=== PATIENT | female | born 1955 | race Caucasian/White ===

== ENCOUNTER → 2022-11-22 | Outpatient (CLI) | payer BC, SELFPAY ==
[2022-11-22 20:48] LABS: Absolute Lymphocyte Count 4.51 X10^3/uL (0.83-4.51); Absolute Neutrophil Count 5.6 X10^3/uL (2.0-7.7); Basophil# 0.15 X10^3/uL; Basophil% 1.3 % (0-1); Eosinophil# 0.21 X10^3/uL; Eosinophils% 1.9 % (0-5); Hematocrit 42.7 % (37-47); Hemoglobin 13.9 g/dL (12.0-15.0); Lymphocyte # 4.51 X10^3/ul (0.83-4.51); Lymphocyte % 40.2 % (19-41); Mean Corp Hgb Conc 32.6 g/dL (32-36); Mean Corpuscular Hgb 30.8 pg (27.0-32.0); Mean Corpuscular Volume 94.5 fL (81-99); Mean Platelet Vol. 10.3 fl (6.2-12.0); Monocyte# 0.77 X10^3/uL; Monocyte% 6.9 % (0-10); NRBC Flagged by Analyzer 0 % (0-5); Neutrophil # 5.55 X10^3/uL (2.7-7.7); Neutrophil % 49.4 % (47-70); Platelet Count 300 K/mm3 (150-450); RBC Distribution Width CV 13.4 % (11.6-14.6); RBC Distribution Width SD 46.5 fl (35.1-43.9); Red Blood Count 4.52 M/mm3 (4.2-5.4); White Blood Count 11.2 K/mm3 (4.4-11.0)
[2022-11-22 21:10] LABS: AST(SGOT) 18 U/L (15-37); Alanine Aminotransfer ALT/SGPT 29 U/L (13-56); Albumin, Serum 3.4 g/dL (3.2-5.0); Alkaline Phosphatase 115 U/L (45-117); Anion Gap 2 (5-15); BUN 11 mg/dL (7-18); BUN/Creat Ratio 14.8 RATIO (10-20); Calcium,Total 9.1 mg/dL (8.5-10.1); Chloride 108 mmol/L (98-107); Cholesterol 203 mg/dL (200); Creatinine, Serum 0.74 mg/dL (0.55-1.02); EST Glomerular Filtration Rate 83 mL/min (>60); Est Glom Filt Rate - Afr Amer 100 mL/min (>60); Globulin 3.3 g/dL (2.2-4.2); Glucose 86 mg/dL (74-106); High Density Lipoprotein 59 mg/dL; Potassium 3.8 mmol/L (3.5-5.1); Protein, Total 6.7 g/dL (6.4-8.2); Sodium Level 139 mmol/L (136-145); Thyroid Stim Hormone (TSH) 1.61 uIU/mL (0.358-3.74); Triglycerides 158 mg/dL; Very Low Density Lipoprotein 32 mg/dL (5-40)
== END | disposition home or self-care (01) ==
PROVIDERS: Nurse Practitioner
DX: D69.9 Hemorrhagic condition, unspecified (principal); K21.9 Gastro-esophageal reflux disease without esophagitis; I10 Essential (primary) hypertension; E03.9 Hypothyroidism, unspecified
CPT/HCPCS: 80053; 80061; 81241; 84443; 85025

== ENCOUNTER → 2023-05-26 | Outpatient (CLI) | payer MEDICARE, SELFPAY ==
[2023-05-26 23:07] LABS: Absolute Lymphocyte Count 3.67 X10^3/uL (0.83-4.51); Absolute Neutrophil Count 6.3 X10^3/uL (2.0-7.7); Basophil# 0.08 X10^3/uL; Basophil% 0.7 % (0-1); Eosinophil# 0.12 X10^3/uL; Eosinophils% 1.1 % (0-5); Hematocrit 45.6 % (37-47); Hemoglobin 15.2 g/dL (12.0-15.0); Lymphocyte # 3.67 X10^3/ul (0.83-4.51); Lymphocyte % 32.9 % (19-41); Mean Corp Hgb Conc 33.3 g/dL (32-36); Mean Corpuscular Hgb 30.2 pg (27.0-32.0); Mean Corpuscular Volume 90.7 fL (81-99); Mean Platelet Vol. 10.4 fl (6.2-12.0); Monocyte# 0.97 X10^3/uL; Monocyte% 8.7 % (0-10); NRBC Flagged by Analyzer 0 % (0-5); Neutrophil # 6.25 X10^3/uL (2.7-7.7); Neutrophil % 56.1 % (47-70); Platelet Count 332 K/mm3 (150-450); RBC Distribution Width CV 13.7 % (11.6-14.6); RBC Distribution Width SD 45.4 fl (35.1-43.9); Red Blood Count 5.03 M/mm3 (4.2-5.4); White Blood Count 11.2 K/mm3 (4.4-11.0)
[2023-05-27 00:16] LABS: ALB/GLOB Ratio 0.9 RATIO (0.9-2.4); AST(SGOT) 20 U/L (15-37); Alanine Aminotransfer ALT/SGPT 34 U/L (13-56); Albumin, Serum 3.6 g/dL (3.2-5.0); Alkaline Phosphatase 94 U/L (45-117); Anion Gap 6 (5-15); BUN 11 mg/dL (7-18); BUN/Creat Ratio 6.8 RATIO (10-20); CRP > 190.00 mg/L (0.0-3.0); Calcium,Total 9.7 mg/dL (8.5-10.1); Chloride 106 mmol/L (98-107); Creatinine, Serum 1.61 mg/dL (0.55-1.02); EST Glomerular Filtration Rate 34 mL/min (>60); Est Glom Filt Rate - Afr Amer 41 mL/min (>60); Globulin 3.8 g/dL (2.2-4.2); Glucose 95 mg/dL (74-106); Potassium 3.4 mmol/L (3.5-5.1); Protein, Total 7.4 g/dL (6.4-8.2); Sodium Level 136 mmol/L (136-145); Troponin-I HS 8 pg/mL (3.0-54.0)
== END | disposition home or self-care (01) ==
PROVIDERS: PCP Nurse Practitioner; Visit Provider Nurse Practitioner
DX: R19.7 Diarrhea, unspecified (principal); K21.9 Gastro-esophageal reflux disease without esophagitis
CPT/HCPCS: 80053; 84484; 85025; 86140

== ENCOUNTER → 2023-12-11 | Outpatient (CLI) | payer MEDICARE, OTHER, SELFPAY ==
[2023-12-11 21:15] LABS: Absolute Lymphocyte Count 4.68 X10^3/uL (0.83-4.51); Absolute Neutrophil Count 4.2 X10^3/uL (2.0-7.7); Basophil# 0.12 X10^3/uL; Basophil% 1.2 % (0-1); Eosinophil# 0.12 X10^3/uL; Eosinophils% 1.2 % (0-5); Hematocrit 41.6 % (37-47); Lymphocyte # 4.68 X10^3/ul (0.83-4.51); Lymphocyte % 47.7 % (19-41); Mean Corp Hgb Conc 33.7 g/dL (32-36); Mean Corpuscular Hgb 30.3 pg (27.0-32.0); Mean Platelet Vol. 10.1 fl (6.2-12.0); Monocyte% 7.1 % (0-10); NRBC Flagged by Analyzer 0 % (0-5); Neutrophil # 4.15 X10^3/uL (2.7-7.7); Neutrophil % 42.4 % (47-70); Platelet Count 347 K/mm3 (150-450); RBC Distribution Width SD 42.5 fl (35.1-43.9); Red Blood Count 4.62 M/mm3 (4.2-5.4); White Blood Count 9.8 K/mm3 (4.4-11.0)
[2023-12-11 21:32] LABS: AST(SGOT) 23 U/L (15-37); Alanine Aminotransfer ALT/SGPT 31 U/L (13-56); Albumin, Serum 3.6 g/dL (3.2-5.0); Alkaline Phosphatase 115 U/L (45-117); Anion Gap 7 (5-15); BUN 9 mg/dL (7-18); BUN/Creat Ratio 11.7 RATIO (10-20); Calcium,Total 9.2 mg/dL (8.5-10.1); Chloride 106 mmol/L (98-107); Cholesterol 205 mg/dL (200); Creatinine, Serum 0.77 mg/dL (0.55-1.02); EST Glomerular Filtration Rate 80 mL/min (>60); Est Glom Filt Rate - Afr Amer 97 mL/min (>60); Globulin 3.6 g/dL (2.2-4.2); Glucose 85 mg/dL (74-106); High Density Lipoprotein 64 mg/dL; Potassium 3.8 mmol/L (3.5-5.1); Protein, Total 7.2 g/dL (6.4-8.2); Sodium Level 138 mmol/L (136-145); Triglycerides 92 mg/dL; Very Low Density Lipoprotein 18 mg/dL (5-40)
== END | disposition home or self-care (01) ==
PROVIDERS: PCP Nurse Practitioner; Referring Provider Nurse Practitioner; Visit Provider Nurse Practitioner
DX: I10 Essential (primary) hypertension (principal); K21.9 Gastro-esophageal reflux disease without esophagitis; E03.9 Hypothyroidism, unspecified; F41.1 Generalized anxiety disorder
CPT/HCPCS: 80053; 80061; 84443; 85025

== ENCOUNTER → 2024-12-09 | Outpatient (CLI) | payer BC, SELFPAY ==
--- OUTSIDE RECORDS SUMMARY | 2024-12-09 21:42 | XMS RPT_ITS | CCD ---
Author Organization [facility] Care Team Providers Care Director [facility] Name Role Phone Unavailable Primary Care Provider Unavailkuldeep e PACHECO, BRENDA Referring Unavailable Pacheco UNDERWATER ROBOTICIST, Brenda Attending Unavailable Pacheco UNDERWATER ROBOTICIST, Brenda Primary Care Unavailable Pacheco UNDERWATER ROBOTICIST, Brenda Referring Unavailable Pacheco UNDERWATER ROBOTICIST, Brenda Attending Unavailable Pacheco UNDERWATER ROBOTICIST, Brenda Primary Care Unavailable Allergies Allergy Classification Reported Allergen(s) Allergy Type Date of Onset Reaction(s) Facility (1 source) Penicillins Propensity to adverse reactions to drug 5 Swelling [facility] (1 source) Cefuroxime Drug Allergy 4 rash and itching [facility] (1 source) Lisinopril Drug Allergy 9 cough [facility] (1 source) Penicillin G Drug Allergy 8 SWELL, RASH, PRURITIS [facility] (1 source) Cefuroxime Drug Allergy 4 [facility] (1 source) Lisinopril Drug Allergy 9 [facility] (1 source) Penicillin Drug Allergy 8 [facility] Medications Current Medications Medication Drug Class(es) Dates Sig (Normalized) Sig (Original) ALPRAZolam 1 mg oral tablet (12 sources) Benzodiazepine Start: 12-19-2017 End: 01-07-2023 take 1 mg by mouth once daily Alprazolam Active 1 MG PO daily January 07, 2023 7:41pm Start: 10-10-2017 End: 12-19-2017 take 1 mg by mouth once Alprazolam Discontinued 1 MG PO ONCE October 10, 2017 12:00am December 19, 2017 6:03pm benzonatate 200 mg oral capsule (8 sources) Non-narcotic Antitussive Start: 02-20-2021 End: 01-07-2023 take 200 mg by mouth three times daily Benzonatate Active 200 MG PO THREE TIMES A DAY 45 January 07, 2023 7:42pm Start: 2018 End: 11-18-2018 take 200 mg by mouth three times daily Benzonatate Discontinued 200 MG PO THREE TIMES A DAY 60 May 28, 2018 4:37pm November 18, 2018 7:11pm betamethasone 0.0005 mg/mg topical ointment (8 sources) Corticosteroid Start: 10-10-2017 End: 07-10-2022 Betamethasone Dipropionate Active 1 APPLIC TOPICAL daily 30 July 10, 2022 6:11pm Start: 01-04-2016 betamethasone dipropionate (DIPROLENE) 0.05 % ointment Apply topically 2 times daily. 1 Tube 2 01/04/2016 Active ciprofloxacin 500 mg oral tablet (2 sources) Quinolone Antimicrobial Start: 05-26-2023 take 1 tablet by mouth twice daily Ciprofloxacin Hcl (Cipro) 500 mg tablet Active 500 MG PO TWICE A DAY 14 May 26, 2023 12:00am Start: 06-27-2020 End: 12-25-2020 take 500 mg by mouth twice daily Ciprofloxacin Hcl Discontinued 500 MG PO TWICE A DAY 20 June 27, 2020 12:00am December 25, 2020 5:46pm clobetasol propionate 0.5 mg/ml medicated shampoo (4 sources) Corticosteroid Start: 05-02-2020 End: 11-22-2022 Clobetasol Active 1 APPLIC TOPICAL DAILY 118 7 November 22, 2022 6:04pm use daily for 1 week then weekly fluocinonide 1 mg/ml topical cream (3 sources) Corticosteroid Start: 11-26-2019 End: 07-10-2022 Fluocinonide Active 1 APPLIC TOPICAL TWICE A DAY 60 July 10, 2022 6:12pm fluticasone propionate 0.05 mg/actuat metered dose nasal spray (1 source) Corticosteroid Start: 05-28-2019 take 1 spray(s) nasal route once daily Fluticasone Propionate (Children's Flonase Allergy Rlf) 50 mcg/actuation spray,suspension Active 2 SPRAY INTRANASAL DAILY May 28, 2019 12:00am administer into each nostril levothyroxine sodium 0.075 mg oral tablet (10 sources) l-Thyroxine Start: 05-19-2018 End: 11-29-2022 take 75 ug by mouth once daily Levothyroxine Active 75 MCG PO daily November 29, 2022 7:16pm Start: 01-27-2018 End: 04-27-2018 take 75 ug by mouth once daily Levothyroxine Discontin ued 75 MCG PO daily January 27, 2018 1:00am April 27, 2018 1:10am Start: 10-10-2017 End: 01-27-2018 take 1 capsule by mouth once daily levothyroxine 75 mcg capsule Discontinued 75 MCG PO daily October 10, 2017 12:00am January 27, 2018 6:19pm loratadine 10 mg oral tablet (1 source) Start: 05-28-2019 take 1 tablet by mouth once daily Loratadine (Claritin) 10 mg tablet Active 10 MG PO DAILY May 28, 2019 12:00am losartan potassium 100 mg oral tablet (9 sources) Angiotensin 2 Receptor Marleny Start: 02-08-2019 End: 11-22-2022 take 100 mg by mouth once daily Losartan Active 100 MG PO daily November 22, 2022 6:04pm Start: 09-02-2018 End: 11-18-2018 take 100 mg by mouth once daily Losartan Discontinued 100 MG PO daily September 02, 2018 12:00am November 18, 2018 7:14pm Start: 05-16-2016 End: 04-25-2018 take 100 mg by mouth once daily Losartan Discontinued 100 MG PO daily December 19, 2017 6:07pm April 25, 2018 2:03pm omeprazole 40 mg delayed release oral capsule (8 sources) Proton Pump Inhibitor Start: 05-17-2016 End: 11-22-2022 take 40 mg by mouth once daily Omeprazole Active 40 MG PO daily November 22, 2022 6:05pm promethazine hydrochloride 12.5 mg oral tablet (1 source) Phenothiazine Start: 03-27-2023 take 12.5 mg by mouth three times daily Promethazine Active 12.5 MG PO THREE TIMES A DAY March 27, 2023 1:00am Completed/Discontinued Medications Medication Drug Class(es) Dates Sig (Normalized) Sig (Original) azithromycin 250 mg oral tablet (2 sources) Macrolide Antimicrobial Start: 11-22-2022 End: 11-27-2022 Azithromycin Discontinued 250 MG PO daily 6 November 22, 2022 12:00am November 27, 2022 12:04am 2 po qd for 1 day then 1 po qd for 4 days with food or after eating Start: 01-04-2022 End: 01-09-2022 Azithromycin Discontinued 25 0 MG PO daily 6 January 04, 2022 1:00am January 09, 2022 1:04am 2 po qd for 1 day then 1 po qd for 4 days with food or after eating 12 hr buPROPion hydrochloride 100 mg extended release oral tablet (1 source) Aminoketone Start: 10-10-2017 End: 12-19-2017 take 100 mg by mouth twice daily Bupropion Hcl Discontinued 100 MG PO TWICE A DAY October 10, 2017 12:00am December 19, 2017 6:03pm candesartan cilexetil 8 mg oral tablet (1 source) Angiotensin 2 Receptor Marleny Start: 11-18-2018 End: 11-23-2018 take 1 tablet by mouth once daily Candesartan (Atacand) 8 mg tablet Discontinued 8 MG PO DAILY November 18, 2018 12:00am November 23, 2018 11:59am cefuroxime 500 mg oral tablet (13 sources) Cephalosporin Antibacterial Start: 03-27-2023 End: 04-06-2023 take 1 tablet by mouth every twelve hours cefuroxime axetil 500 mg tablet Discontinued 500 MG PO Q12H 13 12March 27, 2023 6:45pm April 06, 2023 1:04am Start: 02-10-2023 End: 02-20-2023 take 1 tablet by mouth every twelve hours cefuroxime axetil 500 mg tablet Discontinued 500 MG PO Q12H 13 12February 10, 2023 1:24pm February 20, 2023 1:05am Start: 10-24-2022 End: 11-03-2022 take 1 tablet by mouth every twelve hours cefuroxime axetil 500 mg tablet Discontinued 500 MG PO Q12H 13 12October 24, 2022 4:32pm November 03, 2022 12:04am Start: 12-18-2021 End: 01-04-2022 take 500 mg by mouth twice daily Cefuroxime Axetil Discontinued 500 MG PO TWICE A DAY December 18, 2021 12:00am January 04, 2022 5:53pm Start: 02-20-2021 End: 11-21-2021 take 500 mg by mouth twice daily Cefuroxime Axetil Discontinued 500 MG PO TWICE A DAY July 12, 2021 6:26pm November 21, 2021 6:06pm Start: 10-02-2020 End: 10-12-2020 take 500 mg by mouth every twelve hours Cefuroxime Axetil Discontinued 500 MG PO Q12H 20 October 02, 2020 5:15pm October 12, 2020 12:01am Start: 12-27-2019 End: 02-08-2020 take 500 mg by mouth twice daily Cefuroxime Axetil Discontinued 500 MG PO TWICE A DAY December 27, 2019 1:00am February 08, 2020 5:13pm Start: 09-01-2019 End: 10-01-2019 take 500 mg by mouth every twelve hours Cefuroxime Axetil Discontinued 500 MG PO Q12H 60 September 01, 2019 7:54pm October 01, 2019 12:02am Start: 05-28-2018 End: 06-11-2018 take 500 mg by mouth every twelve hours Cefuroxime Axetil Discontinued 500 MG PO Q12H 28 May 28, 2018 12:00am June 11, 2018 12:07am Start: 03-21-2018 End: 03-31-2018 take 500 mg by mouth every twelve hours Cefuroxime Axetil Discontinued 500 MG PO Q12H 20 March 21, 2018 1:00am March 31, 2018 1:07am Start: 10-10-2017 End: 10-20-2017 take 1 tablet by mouth every twelve hours cefuroxime axetil 500 mg tablet Discontinued 500 MG PO Q12H 20 October 10, 2017 12:00am October 20, 2017 12:08am cephalexin 500 mg oral capsule (2 sources) Cephalosporin Antibacterial Start: 05-02-2020 End: 06-27-2020 take 500 mg by mouth three times daily Cephalexin Discontinued 500 MG PO THREE TIMES A DAY May 02, 2020 7:07pm June 27, 2020 6:22pm Start: 11-26-2019 End: 12-27-2019 take 500 mg by mouth three times daily Cephalexin Discontinued 500 MG PO THREE TIMES A DAY November 26, 2019 12:00am December 27, 2019 8:14pm clarithromycin 500 mg oral tablet (15 sources) Macrolide Antimicrobial Start: 05-08-2023 End: 05-26-2023 take 500 mg by mouth twice daily Clarithromycin Discontinued 500 MG PO TWICE A DAY May 08, 2023 5:47pm May 26, 2023 5:24pm Start: 01-07-2023 End: 02-10-2023 take 500 mg by mouth twice daily Clarithromycin Discontinued 500 MG PO TWICE A DAY January 07, 2023 7:44pm February 10, 2023 1:23pm Start: 03-06-2022 End: 10-24-2022 take 500 mg by mouth twice daily Clarithromycin Discontinued 500 MG PO TWICE A DAY October 14, 2022 5:37pm October 24, 2022 4:33pm Start: 11-21-2021 End: 12-18-2021 take 500 mg by mouth twice daily Clarithromycin Discontinued 500 MG PO TWICE A DAY November 21, 2021 6:04pm December 18, 2021 6:24pm Start: 12-25-2020 End: 02-20-2021 take 500 mg by mouth twice daily Clarithromycin Discontinued 500 MG PO TWICE A DAY December 25, 2020 12:00am February 20, 2021 6:32pm Start: 01-09-2020 End: 02-08-2020 take 1000 mg by mouth once daily Clarithromycin Discontinued 1000 MG PO daily January 09, 2020 1:19pm February 08, 2020 5:13pm Start: 07-13-2019 End: 09-01-2019 take 500 mg by mouth twice daily Clarithromycin Discontinued 500 MG PO TWICE A DAY July 13, 2019 12:00am September 01, 2019 7:52pm Start: 04-06-2019 End: 05-28-2019 take 500 mg by mouth twice daily Clarithromycin Discontinued 500 MG PO TWICE A DAY April 06, 2019 1:00am May 28, 2019 6:08pm Start: 2018 End: 11-18-2018 take 500 mg by mouth twice daily Clarithromycin Discontinued 500 MG PO TWICE A DAY 2018 1:00am November 18, 2018 7:11pm Start: 01-27-2018 End: 03-21-2018 take 500 mg by mouth every twelve hours Clarithromycin Discontinued 500 MG PO Q12H January 27, 2018 1:00am March 21, 2018 2:06pm Start: 10-13-2017 End: 12-19-2017 take 1000 mg by mouth once daily Clarithromycin Discontinued 1000 MG PO daily October 13, 2017 12:00am December 19, 2017 6:03pm clindamycin 300 mg oral capsule (1 source) Lincosamide Antibacterial Start: 02-08-2020 End: 02-22-2020 take 300 mg by mouth twice daily Clindamycin Hcl Discontinued 300 MG PO TWICE A DAY February 08, 2020 1:00am February 22, 2020 1:02am irbesartan 300 mg oral tablet (1 source) Angiotensin 2 Receptor Marleny Start: 11-23-2018 End: 02-04-2019 take 300 mg by mouth once daily Irbesartan Discontinued 300 MG PO DAILY November 23, 2018 12:00am February 04, 2019 5:55pm lisinopril 20 mg oral tablet (1 source) Angiotensin Converting Enzyme Inhibitor Start: 04-25-2018 End: 09-02-2018 take 20 mg by mouth once daily Lisinopril Discontinued 20 MG PO DAILY April 25, 2018 1:00am September 02, 2018 11:44am ofloxacin 3 mg/ml otic solution (5 sources) Quinolone Antimicrobial Start: 03-27-2023 End: 05-26-2023 Ofloxacin Discontinued 10 DRP OTIC DAILY 11 30March 27, 2023 1:00am May 26, 2023 5:25pm to both ears Start: 03-06-2022 End: 07-10-[address] P OTIC DAILY 11 30March 06, 2022 9:12pm July 10, 2022 6:10pm Start: 06-27-2020 End: 02-20-[address] P OTIC DAILY 10 June 27, 2020 12:00am February 20, 2021 6:33pm Start: 11-26-2019 End: 06-27-2020 take 7 drop(s) into the eye(s) once daily Ofloxacin Discontinued 0 OPHTHALMIC .COMPLEX May 02, 2020 7:05pm June 27, 2020 6:25pm put 7 drops into affected ears 2x a day for 7 days predniSONE 20 mg oral tablet (11 sources) Start: 05-08-2023 End: 05-26-2023 take 40 mg by mouth once daily Prednisone Discontinued 40 MG PO DAILY May 08, 2023 12:00am May 26, 2023 5:25pm Start: 01-07-2023 End: 03-27-2023 take 40 mg by mouth once daily Prednisone Discontinued 40 MG PO DAILY January 07, 2023 1:00am March 27, 2023 6:42pm Start: 12-25-2020 End: 01-04-2022 take 40 mg by mouth once daily Prednisone Discontinued 40 MG PO DAILY December 18, 2021 6:25pm January 04, 2022 5:53pm Start: 05-02-2020 End: 05-12-2020 take 40 mg by mouth once daily Prednisone Discontinued 40 MG PO DAILY 13 12May 02, 2020 7:13pm May 12, 2020 12:03am Start: 09-01-2019 End: 09-11-2019 take 40 mg by mouth once daily Prednisone Discontinued 40 MG PO DAILY 13 12September 01, 2019 12:00am September 11, 2019 12:03am valsartan 160 mg oral tablet (1 source) Angiotensin 2 Receptor Marleny Start: 02-04-2019 End: 02-08-2019 take 160 mg by mouth once daily Valsartan Discontinued 160 MG PO DAILY February 04, 2019 1:00am February 08, 2019 2:32pm Problems Active Problems Problem Classification Problem Date Documented Da te Episodic/Chronic Allergic reactions (1 source) Atopic dermatitis; Translations: [Atopic dermatitis, unspecified] 11-26-2019 Chronic Anxiety disorders (3 sources) Anxiety; Translations: [Anxiety disorder, unspecified] Onset: 5 08-15-2014 Chronic Chronic obstructive pulmonary disease and bronchiectasis (1 source) Bronchitis; Translations: [Bronchitis, not specified as acute or chronic] 12-25-2020 Episodic Coagulation and hemorrhagic disorders (1 source) Blood coagulation disorder; Translations: [Hemorrhagic condition, unspecified] 11-22-2022 Episodic Conditions associated with dizziness or vertigo (1 source) Dizziness; Translations: [Dizziness and giddiness] 02-04-2019 Episodic Disorders usually diagnosed in infancy, childhood, or adolescence (1 source) Attention deficit hyperactivity disorder, predominantly inattentive type; Translations: [Other specified behavioral and emotional disorders with onset usually occurring in childhood and adolescence] Onset: 5 08-15-2014 Chronic Esophageal disorders (2 sources) Gastroesophageal reflux disease; Translations: [Gastro-esophageal reflux disease without esophagitis] Onset: 5 08-15-2014 Chronic Essential hypertension (5 sources) Hypertensive disorder; Translations: [Essential (primary) hypertension] Onset: 5 08-15-2014 Chronic Fever of unknown origin (1 source) Fever; Translations: [Fever, unspecified] 03-28-2018 Episodic Nutritional deficiencies (1 source) Vitamin D deficiency; Translations: [Vitamin D deficiency, unspecified] Onset: 5 08-15-2014 Chronic Osteoarthritis (1 source) Osteoarthritis; Translations: [Unspecified osteoarthritis, unspecified site] Onset: 5 08-15-2014 Chronic Other and ill-defined heart disease (2 sources) Heart disease, unspecified; Translations: [Heart disease, unspecified] Onset: 2 Chronic Other ear and sense organ disorders (1 source) Otitis externa; Translations: [Unspecified otitis externa, right ear] 06-27-2020 Chronic Other gastrointestinal disorders (1 source) Diarrhea; Translations: [Diarrhea, unspecified] 03-27-2023 Episodic Other inflammatory condition of skin (2 sources) Psoriasis; Translations: [Psoriasis, unspecified] 12-19-2017 Chronic Other lower respiratory disease (1 source) Cough; Translations: [Cough] 04-06-2019 Episodic Other screening for suspected conditions (not mental disorders or infectious disease) (3 sources) Encounter for screening mammogram for malignant neoplasm of breast; Translations: [Patient encounter status] Onset: 2 Episodic Other skin disorders (1 source) Acquired disorder of keratinization; Translations: [Disorder of the skin and subcutaneous tissue, unspecified] 11-26-2019 Episodic Other upper respiratory infections (2 sources) Maxillary sinusitis; Translations: [Chronic maxillary sinusitis] 02-08-2020 Chronic Otitis media and related conditions (4 sources) Acute left otitis media; Translations: [Otitis media, unspecified, left ear] 10-10-2017 Episodic Thyroid disorders (3 sources) Hypothyroidism, unspecified; Translations: [Hypothyroidism] Onset: 2 Chronic Past or Other Problems Problem Classification Problem Date Documented Da te Episodic/Chronic Allergic reactions (1 source) Environmental allergy; Translations: [Other allergy status, other than to drugs and biological substances] Onset: 08-15-2014 08-15-2014 Episodic Other gastrointestinal disorders (1 source) Diarrhea, unspecified; Translations: [Diarrhea, unspecified] Onset: 08-18-2023 Episodic Results Test Name Value Interpretation Reference Range Facility CBC W/Diff, Automatedon 10- Absolute Lymph 4.68 X10 3/uL High 0.83-4.51 [facility] Comment on above: Performed By: #### L [id number], [id number], L100.0100, L500.4100 #### [facility] [address] [place], [address] Absolute Neut 4.2 X10 3/uL Normal 2.0-7.7 [facility] Comment on above: Performed By: #### L [id number], [id number], L100.0100, L500.4100 #### [facility] [address] [place], [address] Basophils/100 WBC (Bld) 1.2 % High 0-1 [facility] Comment on above: Performed By: #### L [id number], [id number], L100.0100, [id number] #### [facility] [address] [place], [address] Eosinophils/100 WBC (Bld) 1.2 % Normal 0-5 [facility] Comment on above: Performed By: #### L [id number], [id number], L100.0100, L500.4100 #### [facility] [address] [place], [address] Erythrocyte distribution width (RBC) [Ratio] 13.0 % Normal 11.6-14.6 [facility] Comment on above: Performed By: #### L [id number], [id number], L100.0100, [id number] #### [facility] [address] [place], [address] Hematocrit (Bld) [Volume fraction] 41.6 % Normal 37-47 [facility] Comment on above: Performed By: #### L [id number], [id number], L100.0100, L500.4100 #### [facility] [address] [place], [address] Hemoglobin (Bld) [Mass/Vol] 14.0 g/dL Normal 12.0-15.0 [facility] Comment on above: Performed By: #### L [id number], [id number], L100.0100, L500.4100 #### [facility] [address] [place], [address] IG% 0.400 Normal 0.0-0.9 [facility] Comment on above: Result Comment: IG% - Immature Granulocytes (promyelocytes, myelocytes and metamyelocytes) > 1% indicates that a LEFT SHIFT is Present. Performed By: #### L [id number], [id number], L100.0100, L500.4100 #### [facility] [address] [place], [address] Lymphocytes/100 WBC (Bld) 47.7 % High 19-41 [facility] Comment on above: Performed By: #### L [id number], [id number], L100.0100, L500.4100 #### [facility] [address] [place], [address] MCH (RBC) [Entitic mass] 30.3 pg Normal 27.0-32.0 [facility] Comment on above: Performed By: #### L [id number], [id number], L100.0100, L500.4100 #### [facility] [address] [place], [address] MCHC (RBC) [Mass/Vol] 33.7 g/dL Normal 32-36 [facility] Comment on above: Performed By: #### L [id number], [id number], L100.0100, L500.4100 #### [facility] [address] [place], [address] MCV (RBC) [Entitic vol] 90.0 fL Normal 81-99 [facility] Comment on above: Performed By: #### L [id number], [id number], L100.0100, L500.4100 #### [facility] [address] [place], [address] Monocytes/100 WBC (Bld) 7.1 % Normal 0-10 [facility] Comment on above: Performed By: #### L [id number], [id number], L100.0100, L500.4100 #### [facility] [address] [place], [address] Neutrophils/100 WBC (Bld) 42.4 % Low 47-70 [facility] Comment on above: Performed By: #### L [id number], [id number], L100.0100, L500.4100 #### [facility] [address] [place], [address] Nucleated RBC (Bld) [#/Vol] 0 10*3/uL Normal 0-5 [facility] Comment on above: Performed By: #### L [id number], [id number], L100.0100, L500.4100 #### [facility] [address] [place], [address] Platelet mean volume (Bld) [Entitic vol] 10.1 fL Normal 6.2-12.0 [facility] Comment on above: Performed By: #### L [id number], [id number], L100.0100, L500.4100 #### [facility] [address] [place], [address] Platelets (Bld) [#/Vol] 347 10*3/uL Normal 150-450 [facility] Comment on above: Performed By: #### L [id number], [id number], L100.0100, L500.4100 #### [facility] [address] [place], [address] RBC (Bld) [#/Vol] 4.62 10*6/uL Normal 4.2-5.4 [facility] Comment on above: Performed By: #### L [id number], [id number], L100.0100, L500.4100 #### [facility] [address] [place], [address] RDW SD 42.5 fl Normal 35.1-43.9 [facility] Comment on above: Performed By: #### L [id number], [id number], L100.0100, L500.4100 #### [facility] [address] [place], [address] WBC (Bld) [#/Vol] 9.8 10*3/uL Normal 4.4-11.0 [facility] Comment on above: Performed By: #### L [id number], [id number], L100.0100, L500.4100 #### [facility] [address] [place], [address] Comprehensive Metabolic Prof [facility] 12-11-2023 Albumin [Mass/Vol] 3.6 g/dL Normal 3.2-5.0 [facility] Comment on above: Performed By: #### L [id number], [id number], L100.0100, L500.4100 #### [facility] [address] [place], [address] Albumin/Globulin [Mass ratio] 1.0 {ratio} Normal 0.9-2.4 [facility] Comment on above: Performed By: #### L [id number], [id number], L100.0100, L500.4100 #### [facility] [address] [place], [address] ALK P 115 U/L Normal 45-117 [facility] Comment on above: Performed By: #### L [id number], [id number], L100.0100, L500.4100 #### [facility] [address] [place], [address] ALT [Catalytic activity/Vol] 31 U/L Normal 13-56 [facility] Comment on above: Performed By: #### L [id number], [id number], L100.0100, L500.4100 #### [facility] [address] [place], [address] AST [Catalytic activity/Vol] 23 U/L Normal 15-37 [facility] Comment on above: Performed By: #### L [id number], [id number], L100.0100, L500.4100 #### [facility] [address] [place], [address] Bilirubin [Mass/Vol] 0.70 mg/dL Normal 0.20-1.00 [facility] Comment on above: Result Comment: For patients on eltrombopag therapy, use of Dimension [place] TBIL is not recommended. Performed By: #### L [id number], [id number], L100.0100, L500.4100 #### [facility] [address] [place], [address] BUN/CRE 11.7 RATIO Normal 10-20 [facility] Comment on above: Performed By: #### L [id number], [id number], L100.0100, L500.4100 #### [facility] [address] [place], [address] CA,Total 9.2 mg/dL Normal 8.5-10.1 [facility] Comment on above: Performed By: #### L [id number], [id number], L100.0100, L500.4100 #### [facility] [address] [place], [address] Chloride [Moles/Vol] 106 mmol/L Normal 98-107 [facility] Comment on above: Performed By: #### L [id number], [id number], L100.0100, L500.4100 #### [facility] [address] [place], [address] CO2 [Moles/Vol] 26.0 mmol/L Normal 21.0-32.0 [facility] Comment on above: Performed By: #### L [id number], [id number], L100.0100, L500.4100 #### [facility] [address] [place], [address] Creatinine [Mass/Vol] 0.77 mg/dL Normal 0.55-1.02 [facility] Comment on above: Result Comment: The validity of the calculated GFR GFRAA in patients over 70 years has not been determined. Clinical correlation is essential. Performed By: #### L [id number], [id number], L100.0100, L500.4100 #### [facility] [address] [place], [address] EST GFR - AA 97 mL/min Normal >60 [facility] Comment on above: Result Comment: Afri can Romanian GFR Calc Performed By: #### L 501.9520, L500.4050, L100.0100, L500.4100 #### [facility] [address] [place], [address] GAP 7 Normal 5-15 [facility] Comment on above: Performed By: #### L 501.9520, L500.4050, L100.0100, L500.4100 #### [facility] [address] [place], [address] GFR/1.73 sq M.predicted among non-blacks MDRD (S/P/Bld) [Vol rate/Area] 80 mL/min/{1.73_m2} Normal >60 [facility] Comment on above: Result Comment: Non- GFR Calc Performed By: #### L 501.9520, L500.4050, L100.0100, L500.4100 #### [facility] [address] [place], [address] Globulin (S) [Mass/Vol] 3.6 g/dL Normal 2.2-4.2 [facility] Comment on above: Performed By: #### L 501.9520, L500.4050, L100.0100, L500.4100 #### [facility] [address] [place], [address] Glucose [Mass/Vol] 85 mg/dL Normal 74-106 [facility] Comment on above: Performed By: #### L 501.9520, L500.4050, L100.0100, L500.4100 #### [facility] [address] [place], [address] Potassium [Moles/Vol] 3.8 mmol/L Normal 3.5-5.1 [facility] Comment on above: Performed By: #### L 501.9520, L500.4050, L100.0100, L500.4100 #### [facility] [address] [place], [address] Sodium [Moles/Vol] 138 mmol/L Normal 136-145 [facility] Comment on above: Performed By: #### L 501.9520, L500.4050, L100.0100, L500.4100 #### [facility] [address] [place], [address] T PROT 7.2 g/dL Normal 6.4-8.2 [facility] Comment on above: Performed By: #### L 501.9520, L500.4050, L100.0100, L500.4100 #### [facility] [address] [place], [address] Urea nitrogen [Mass/Vol] 9 mg/dL Normal 7-18 [facility] Comment on above: Performed By: #### L 501.9520, L500.4050, L100.0100, L500.4100 #### [facility] [address] [place], [address] Lipid Profileon 12-11-2023 Cholesterol [Mass/Vol] 205 mg/dL High 200 [facility] Comment on above: Result Comment: <200 mg/dL Desirable 200-240 mg/dL Borderline >240 mg/dL High Risk Performed By: #### L 501.9520, L500.4050, L100.0100, L500.4100 #### [facility] [address] [place], [address] Cholesterol in HDL [Mass/Vol] 64 mg/dL Normal [facility] Comment on above: Result Comment: The drugs N-Acetylcysteine and Metamizole may falsely depress this assay. Reference Range HDL <40 mg/dL Low HDL Cholesterol HDL >or= 60 mg/dL High HDL Cholesterol Performed By: #### L 501.9520, L500.4050, L100.0100, L500.4100 #### [facility] [address] [place], [address] Cholesterol in LDL [Mass/Vol] 123 mg/dL Normal 0-130 [facility] Comment on above: Performed By: #### L 501.9520, L500.4050, L100.0100, L500.4100 #### [facility] [address] [place], [address] Cholesterol in VLDL [Mass/Vol] 18 mg/dL Normal 5-40 [facility] Comment on above: Performed By: #### L 501.9520, L500.4050, L100.0100, L500.4100 #### [facility] [address] [place], [address] Triglyceride [Mass/Vol] 92 mg/dL Normal [facility] Comment on above: Result Comment: The drugs N-Acetylcysteine and Metamizole may falsely depress this assay. Serum Triglycerides Reference Interval Normal <150 mg/dL Borderline high 150 - 199 mg/dL High 200 - 499 mg/dL Very High > or = 500 mg/dL Performed By: #### L 501.9520, L500.4050, L100.0100, L500.4100 #### [facility] [address] [place], [address] Thyroid Stim Hormone (TSH)on 12-11-2023 TSH 2.160 uIU/mL Normal 0.358-3.740 [facility] Comment on above: Performed By: #### L 501.9520, L500.4050, L100.0100, L500.4100 #### [facility] [address] [place], [address] CRPon 05-27-2023 C-REACTIVE PROT > 190.00 High 0.0-3.0 [facility] Comment on above: Order Comment: 1 Result Comment: C-Re active Protein (CRP) provides useful information for the diagnosis, therapy and monitoring of inflammatory processes and associated diseases. For the evaluation of Relative Risk for Cardiovascular Disease, a High Sensitivity CRP (HSCRP) should be ordered. Performed By: #### L 501.6710, L501.4020, L100.0100, L500.4050 #### [facility] [address] [place], [address] Comprehensive Metabolic Prof ilon 05-27-2023 Albumin [Mass/Vol] 3.6 g/dL Normal 3.2-5.0 [facility] Comment on above: Order Comment: 1 Performed By: #### L 501.6710, L501.4020, L100.0100, L500.4050 #### [facility] [address] [place], [address] Albumin/Globulin [Mass ratio] 0.9 {ratio} Normal 0.9-2.4 [facility] Comment on above: Order Comment: 1 Performed By: #### L 501.6710, L501.4020, L100.0100, L500.4050 #### [facility] [address] [place], [address] ALK P 94 U/L Normal 45-117 [facility] Comment on above: Order Comment: 1 Performed By: #### L 501.6710, L501.4020, L100.0100, L500.4050 #### [facility] [address] [place], [address] ALT [Catalytic activity/Vol] 34 U/L Normal 13-56 [facility] Comment on above: Order Comment: 1 Performed By: #### L 501.6710, L501.4020, L100.0100, L500.4050 #### [facility] [address] [place], [address] AST [Catalytic activity/Vol] 20 U/L Normal 15-37 [facility] Comment on above: Order Comment: 1 Performed By: #### L 501.6710, L501.4020, L100.0100, L500.4050 #### [facility] [address] [place], [address] Bilirubin [Mass/Vol] 1.00 mg/dL Normal 0.20-1.00 [facility] Comment on above: Order Comment: 1 Result Comment: For patients on eltrombopag therapy, use of Dimension [place] TBIL is not recommended. Performed By: #### L 501.6710, L501.4020, L100.0100, L500.4050 #### [facility] [address] [place], [address] BUN/CRE 6.8 RATIO Low 10-20 [facility] Comment on above: Order Comment: 1 Performed By: #### L 501.6710, L501.4020, L100.0100, L500.4050 #### [facility] [address] [place], [address] CA,Total 9.7 mg/dL Normal 8.5-10.1 [facility] Comment on above: Order Comment: 1 Performed By: #### L 501.6710, L501.4020, L100.0100, L500.4050 #### [facility] [address] [place], [address] Chloride [Moles/Vol] 106 mmol/L Normal 98-107 [facility] Comment on above: Order Comment: 1 Performed By: #### L 501.6710, L501.4020, L100.0100, L500.4050 #### [facility] [address] [place], [address] CO2 [Moles/Vol] 24.0 mmol/L Normal 21.0-32.0 [facility] Comment on above: Order Comment: 1 Performed By: #### L 501.6710, L501.4020, L100.0100, L500.4050 #### [facility] [address] [place], [address] Creatinine [Mass/Vol] 1.61 mg/dL High 0.55-1.02 [facility] Comment on above: Order Comment: 1 Result Comment: The validity of the calculated GFR GFRAA in patients over 70 years has not been determined. Clinical correlation is essential. Performed By: #### L 501.6710, L501.4020, L100.0100, L500.4050 #### [facility] [address] [place], [address] EST GFR - AA 41 mL/min Low >60 [facility] Comment on above: Order Comment: 1 Result Comment: Afri can Romanian GFR Calc Performed By: #### L 501.6710, L501.4020, L100.0100, L500.4050 #### [facility] [address] [place], [address] GAP 6 Normal 5-15 [facility] Comment on above: Order Comment: 1 Performed By: #### L 501.6710, L501.4020, L100.0100, L500.4050 #### [facility] [address] [place], [address] GFR/1.73 sq M.predicted among non-blacks MDRD (S/P/Bld) [Vol rate/Area] 34 mL/min/{1.73_m2} Low >60 [facility] Comment on above: Order Comment: 1 Result Comment: Non- GFR Calc Performed By: #### L 501.6710, L501.4020, L100.0100, L500.4050 #### [facility] [address] [place], [address] Globulin (S) [Mass/Vol] 3.8 g/dL Normal 2.2-4.2 [facility] Comment on above: Order Comment: 1 Performed By: #### L 501.6710, L501.4020, L100.0100, L500.4050 #### [facility] [address] [place], [address] Glucose [Mass/Vol] 95 mg/dL Normal 74-106 [facility] Comment on above: Order Comment: 1 Performed By: #### L 501.6710, L501.4020, L100.0100, L500.4050 #### [facility] [address] [place], [address] Potassium [Moles/Vol] 3.4 mmol/L Low 3.5-5.1 [facility] Comment on above: Order Comment: 1 Performed By: #### L 501.6710, L501.4020, L100.0100, L500.4050 #### [facility] [address] [place], [address] Sodium [Moles/Vol] 136 mmol/L Normal 136-145 [facility] Comment on above: Order Comment: 1 Performed By: #### L 501.6710, L501.4020, L100.0100, L500.4050 #### [facility] [address] [place], [address] T PROT 7.4 g/dL Normal 6.4-8.2 [facility] Comment on above: Order Comment: 1 Performed By: #### L 501.6710, L501.4020, L100.0100, L500.4050 #### [facility] [address] [place], [address] Urea nitrogen [Mass/Vol] 11 mg/dL Normal 7-18 [facility] Comment on above: Order Comment: 1 Performed By: #### L 501.6710, L501.4020, L100.0100, L500.4050 #### [facility] [address] [place], [address] L501.4020on 05-27-2023 TROPONIN-I HS 8 pg/mL Normal 3.0-54.0 [facility] Comment on above: Order Comment: 1 Result Comment: Plea se Note: New Test Units and Gender Specific Reference Ranges. For more information see Policy Stat Procedure [facility] High Sensitivity Troponin (TNIH) and attachments. Performed By: #### L 501.6710, L501.4020, L100.0100, L500.4050 #### [facility] [address] [place], [address] Absolute lymphocyte countOrd ered By: Brenda Castilloson on 05-26-2023 Lymphocytes Auto (Unsp spec) [#/Vol] 3.67 10*3/uL 0.83-4.51 [facility] Automated lymphocyte count a s percentage of total leukocytesOrdered By: Brenda Patiño on 05-26-2023 Lymphocytes/100 WBC Auto (Unsp spec) 32.9 % 19-41 [facility] Basophil percentageOrdered B y: Brenda Patiño on 05-26-2023 Basophils/100 WBC (Bld) 0.7 % 0-1 [facility] Bilirubin [Mass/Vol] 1.00 mg/dL 0.20-1.00 [facility] Comment on above: For patients on eltr ombopag therapy, use of Dimension [place] TBIL is not recommended. Chloride [Moles/Vol] 106 mmol/L 98-107 [facility] Eosinophils/100 WBC (Bld) 1.1 % 0-5 [facility] Glucose [Mass/Vol] 95 mg/dL 74-106 [facility] Hemoglobin (Bld) [Mass/Vol] 15.2 g/dL 12.0-15.0 [facility] Monocytes/100 WBC (Bld) 8.7 % 0-10 [facility] Neutrophils (Bld) [#/Vol] 6.3 10*3/uL 2.0-7.7 [facility] Neutrophils/100 WBC (Bld) 56.1 % 47-70 [facility] Potassium [Moles/Vol] 3.4 mmol/L 3.5-5.1 [facility] Protein [Mass/Vol] 7.4 g/dL 6.4-8.2 [facility] Sodium [Moles/Vol] 136 mmol/L 136-145 [facility] WBC (Bld) [#/Vol] 11.2 10*3/uL 4.4-11.0 [facility] CBC W/Diff, Automatedon Absolute Lymph 3.67 X10 3/uL Normal 0.83-4.51 [facility] Comment on above: Performed By: #### L 501.6710, L501.4020, L100.0100, L500.4050 #### [facility] [address] [place], [address] Absolute Neut 6.3 X10 3/uL Normal 2.0-7.7 [facility] Comment on above: Performed By: #### L 501.6710, L501.4020, L100.0100, L500.4050 #### [facility] [address] [place], [address] Basophils/100 WBC (Bld) 0.7 % Normal 0-1 [facility] Comment on above: Performed By: #### L 501.6710, L501.4020, L100.0100, L500.4050 #### [facility] [address] [place], [address] Eosinophils/100 WBC (Bld) 1.1 % Normal 0-5 [facility] Comment on above: Performed By: #### L 501.6710, L501.4020, L100.0100, L500.4050 #### [facility] [address] [place], [address] Erythrocyte distribution width (RBC) [Ratio] 13.7 % Normal 11.6-14.6 [facility] Comment on above: Performed By: #### L 501.6710, L501.4020, L100.0100, L500.4050 #### [facility] [address] [place], [address] Hematocrit (Bld) [Volume fraction] 45.6 % Normal 37-47 [facility] Comment on above: Performed By: #### L 501.6710, L501.4020, L100.0100, L500.4050 #### [facility] [address] [place], [address] Hemoglobin (Bld) [Mass/Vol] 15.2 g/dL High 12.0-15.0 [facility] Comment on above: Performed By: #### L 501.6710, L501.4020, L100.0100, L500.4050 #### [facility] [address] [place], [address] IG% 0.500 Normal 0.0-0.9 [facility] Comment on above: Result Comment: IG% - Immature Granulocytes (promyelocytes, myelocytes and metamyelocytes) > 1% indicates that a LEFT SHIFT is Present. Performed By: #### L 501.6710, L501.4020, L100.0100, L500.4050 #### [facility] [address] [place], [address] Lymphocytes/100 WBC (Bld) 32.9 % Normal 19-41 [facility] Comment on above: Performed By: #### L 501.6710, L501.4020, L100.0100, L500.4050 #### [facility] [address] [place], [address] MCH (RBC) [Entitic mass] 30.2 pg Normal 27.0-32.0 [facility] Comment on above: Performed By: #### L 501.6710, L501.4020, L100.0100, L500.4050 #### [facility] [address] [place], [address] MCHC (RBC) [Mass/Vol] 33.3 g/dL Normal 32-36 [facility] Comment on above: Performed By: #### L 501.6710, L501.4020, L100.0100, L500.4050 #### [facility] [address] [place], [address] MCV (RBC) [Entitic vol] 90.7 fL Normal 81-99 [facility] Comment on above: Performed By: #### L 501.6710, L501.4020, L100.0100, L500.4050 #### [facility] [address] [place], [address] Monocytes/100 WBC (Bld) 8.7 % Normal 0-10 [facility] Comment on above: Performed By: #### L 501.6710, L501.4020, L100.0100, L500.4050 #### [facility] [address] [place], [address] Neutrophils/100 WBC (Bld) 56.1 % Normal 47-70 [facility] Comment on above: Performed By: #### L 501.6710, L501.4020, L100.0100, L500.4050 #### [facility] [address] [place], [address] Nucleated RBC (Bld) [#/Vol] 0 10*3/uL Normal 0-5 [facility] Comment on above: Performed By: #### L 501.6710, L501.4020, L100.0100, L500.4050 #### [facility] [address] [place], [address] Platelet mean volume (Bld) [Entitic vol] 10.4 fL Normal 6.2-12.0 [facility] Comment on above: Performed By: #### L 501.6710, L501.4020, L100.0100, L500.4050 #### [facility] [address] [place], [address] Platelets (Bld) [#/Vol] 332 10*3/uL Normal 150-450 [facility] Comment on above: Performed By: #### L 501.6710, L501.4020, L100.0100, L500.4050 #### [facility] [address] [place], [address] RBC (Bld) [#/Vol] 5.03 10*6/uL Normal 4.2-5.4 [facility] Comment on above: Performed By: #### L 501.6710, L501.4020, L100.0100, L500.4050 #### [facility] [address] [place], [address] RDW SD 45.4 fl High 35.1-43.9 [facility] Comment on above: Performed By: #### L 501.6710, L501.4020, L100.0100, L500.4050 #### [facility] [address] [place], [address] WBC (Bld) [#/Vol] 11.2 10*3/uL High 4.4-11.0 [facility] Comment on above: Performed By: #### L 501.6710, L501.4020, L100.0100, L500.4050 #### [facility] [address] [place], [address] Determination of erythrocyte mean corpuscular volume (MCV)Ordered By: Brenda Patiño on 05-26-2023 MCV (RBC) [Entitic vol] 90.7 fL 81-99 [facility] Erythrocyte distribution wid th ratioOrdered By: Brenda Patiño on 05-26-2023 Erythrocyte distribution width (RBC) [Ratio] 13.7 % 11.6-14.6 [facility] Erythrocyte distribution wid th standard deviationOrdered By: Brenda Patiño on 05-26-2023 Erythrocyte distribution width (RBC) [Entitic vol] 45.4 fL 35.1-43.9 [facility] Hematocrit Auto (Bld) [Volum e fraction]Ordered By: Brenda Patiño on 05-26-2023 Hematocrit (Bld) [Volume fraction] 45.6 % 37-47 [facility] Immature granulocytes/100 WB C Auto (Bld)Ordered By: Brenda Patiño on 05-26-2023 Immature granulocytes/100 WBC (Bld) 0.500 % 0.0-0.9 [facility] Comment on above: IG% - Immature Granu locytes (promyelocytes, myelocytes and metamyelocytes) > 1% indicates that a LEFT SHIFT is Present. Laboratory - Chemistry and C hemistry - challengeOrdered By: Brenda Patiño on 05-26-2023 Albumin/Globulin [Mass ratio] 0.9 {ratio} 0.9-2.4 [facility] ALP [Catalytic activity/Vol] 94 U/L 45-117 [facility] ALT [Catalytic activity/Vol] 34 U/L 13-56 [facility] CO2 [Moles/Vol] 24.0 mmol/L 21.0-32.0 [facility] Globulin (S) [Mass/Vol] 3.8 g/dL 2.2-4.2 [facility] Urea nitrogen/Creatinine [Mass ratio] 6.8 mg/mg 10-20 [facility] - Hematology and Cell countsOrdered By: Brenda Patiño on 05-26-2023 MCH (RBC) [Entitic mass] 30.2 pg 27.0-32.0 [facility] MCHC (RBC) [Mass/Vol] 33.3 g/dL 32-36 [facility] Nucleated RBC/100 WBC (Bld) [Ratio] 0 % 0-5 [facility] Platelet mean volume (Bld) [Entitic vol] 10.4 fL 6.2-12.0 [facility] Platelets (Bld) [#/Vol] 332 10*3/uL 150-450 [facility] No Panel InformationOrdered By: Brenda Patiño on 05-26-2023 C-Reactive Protein Extended Range > 190.00 mg/L 0.0-3.0 [facility] Comment on above: C-Reactive Protein ( CRP) provides useful information for thediagnosis, therapy and monitoring of inflammatory processesand associated diseases. For the evaluation of Relative Riskfor Cardiovascular Disease, a High Sensitivity CRP (HSCRP)should be ordered. Estimated GFR (MDRD) Amer 41 mL/min >60 [facility] Comment on above: GFR Calc Estimated GFR (MDRD) Non-Af Amer 34 mL/min >60 [facility] Comment on above: Non- GFR Calc Troponin I High Sensitivity 8 pg/mL 3.0-54.0 [facility] Comment on above: Please Note: New Sheila t Units and Gender Specific Reference Ranges. For more information see Policy Stat Procedure [facility] High Sensitivity Troponin (TNIH) and attachments. RBC Auto (Bld) [#/Vol]Ordere d By: Brenda Patiño on 05-26-2023 RBC (Bld) [#/Vol] 5.03 10*6/uL 4.2-5.4 [facility] Serum or plasma calcium alex urement (mass/volume)Ordered By: Brenda Patiño on 05-26-2023 Calcium [Mass/Vol] 9.7 mg/dL 8.5-10.1 [facility] Serum or plasma creatinine m easurement (mass/volume)Ordered By: Brenda Patiño on 05-26-2023 Creatinine [Mass/Vol] 1.61 mg/dL 0.55-1.02 [facility] Comment on above: The validity of the calculated GFR & GFRAA in patients over 70 years has not been determined. Clinical correlation is essential. Serum or plasma urea nitroge n measurement (mass/volume)Ordered By: Brenda Patiño on 05-26-2023 Urea nitrogen [Mass/Vol] 11 mg/dL 7-18 [facility] Thin prep Papanicolaou smear with manual screeningOrdered By: Brenda Patiño on 05-26-2023 Thin prep Papanicolaou smear with manual screening 3.6 g/dL 3.2-5.0 [facility] Thin prep Papanicolaou smear with manual screening 20 U/L 15-37 [facility] Thin prep Papanicolaou smear with manual screening 6 5-15 [facility] [place] DIGITAL SCREEN BILA TERALOrdered By: Brenda Patiño on 11-13-2020 Patient Name: PADMINI NORMAN Mammography ACCESSION EXAM DATE/TIME PROCEDURE ORDERING PROVIDER [id number] 11/13/2020 07:46 EDT MG Breast Tomosynthesis MARLI PATIÑO DORA L BI Scr CPT code 68283 [id number] Reason For Exam (MG Breast Tomosynthesis BI Scr) screening Report TIME SINCE LAST MAMMOGRAM: Last mammogram was performed 3 years and 8 months ago. REASON FOR EXAM: screening, asymptomatic. PROCEDURE: MG BREAST TOMOSYNTHESIS BL SCR: 2020 - 2D/3D Procedure 3D Bilateral CC and MLO view(s) were taken. 2D Bilateral CC and MLO view(s) were taken. Prior study comparison: March 04, 2017, bilateral MG breast tomosynthesis bl scr performed at [facility]. November 21, 2015, bilateral MG breast tomosynthesis bl scr performed at [facility]. June 21, 2014, bilateral MG mammogram digital screening performed at [facility]. TISSUE DENSITY: BIRADS B - There are scattered fibroglandular densities. . PATIENT CANCER HISTORY: No Personal History of Cancer FAMILY CANCER HISTORY: Mother Stomach Cancer age 79 FINDINGS: No suspicious masses, architectural distortions or suspiciously clustered microcalcifications are identified. Asymmetric glandular tissue involving the upper outer right breast as before. There is no evidence of skin thickening or nipple retraction. There are no significant changes when compared with prior studies. Markings on images: BB's = Nipples; skin lesions Open [place] = Palpable Line = Scar 2D digital mammography and tomosynthesis imaging were performed and reviewed with CAD. Mammography Report ASSESSMENT: Category 2 Benign RECOMMENDATION: Routine screening mammogram of both breasts in 1 year. . Report Dictated on Cancer Risk Assessment: This risk assessment is based on patient provided information collected in a risk survey taken at the time of this examination. Lifetime breast cancer risk: Low Risk - If greater than or equal to 20%, consider annual mammogram and annual screening Breast MRI or follow up in high risk clinic. A score of "Low Risk" indicates a score of less than 20%. Is the patient at elevated risk based on the HBOC criteria? No (Hereditary Breast and Ovarian Cancer) - If yes, consider genetic counseling and testing with high risk follow up. Is the patient at elevated risk based on the Fox Syndrome criteria? No - If yes, consider genetic counseling and testing with high risk follow up. --- Final --- Signed Date and Time: 11/13/2020 8:39 am Signed by: MD REDDY VLADIMIR [place] Work Phone: [facility] Incoming Radiology Results From [facility] - 11/13/2020 8:45 AM EDT Patient Name: PADMINI KIDD Mammography ACCESSION EXAM DATE/TIME PROCEDURE ORDERING PROVIDER [id number] 11/13/2020 07:46 EDT MG Breast Tomosynthesis MARLI PATIÑO DORA L BI Scr CPT code 47714 [id number] Reason For Exam (MG Breast Tomosynthesis BI Scr) screening Report TIME SINCE LAST MAMMOGRAM: Last mammogram was performed 3 years and 8 months ago. REASON FOR EXAM: screening, asymptomatic. PROCEDURE: MG BREAST TOMOSYNTHESIS BL SCR: 2020 - 2D/3D Procedure 3D Bilateral CC and MLO view(s) were taken. 2D Bilateral CC and MLO view(s) were taken. Prior study comparison: March 04, 2017, bilateral MG breast tomosynthesis bl scr performed at [facility]. November 21, 2015, bilateral MG breast tomosynthesis bl scr performed at [facility]. June 21, 2014, bilateral MG mammogram digital screening performed at [facility]. TISSUE DENSITY: BIRADS B - There are scattered fibroglandular densities. . PATIENT CANCER HISTORY: No Personal History of Cancer FAMILY CANCER HISTORY: Mother Stomach Cancer age 79 FINDINGS: No suspicious masses, architectural distortions or suspiciously clustered microcalcifications are identified. Asymmetric glandular tissue involving the upper outer right breast as before. There is no evidence of skin thickening or nipple retraction. There are no significant changes when compared with prior studies. Markings on images: BB's = Nipples; skin lesions Open [place] = Palpable Line = Scar 2D digital mammography and tomosynthesis imaging were performed and reviewed with CAD. Mammography Report ASSESSMENT: Category 2 Benign RECOMMENDATION: Routine screening mammogram of both breasts in 1 year. . Report Dictated on Cancer Risk Assessment: This risk assessment is based on patient provided information collected in a risk survey taken at the time of this examination. Lifetime breast cancer risk: Low Risk - If greater than or equal to 20%, consider annual mammogram and annual screening Breast MRI or follow up in high risk clinic. A score of "Low Risk" indicates a score of less than 20%. Is the patient at elevated risk based on the HBOC criteria? No (Hereditary Breast and Ovarian Cancer) - If yes, consider genetic counseling and testing with high risk follow up. Is the patient at elevated risk based on the Fox Syndrome criteria? No - If yes, consider genetic counseling and testing with high risk follow up. --- Final --- Signed Date and Time: 11/13/2020 8:39 am Signed by: MD REDDY VLADIMIR [facility] Work Phone: [employer] Work Phone: MG Breast Tomosynthesis Scr Blon 11-13-2020 MG Breast Tomosynthesis Scr Bl Patient Name: PADMINI KIDD Mammography ACCESSION EXAM DATE/TIME PROCEDURE ORDERING PROVIDER [id number] 11/13/2020 07:46 EDT MG Breast Tomosynthesis MARLI PATIÑO DORA L BI Scr CPT code 38564 [id number] Reason For Exam (MG Breast Tomosynthesis BI Scr) screening Report TIME SINCE LAST MAMMOGRAM: Last mammogram was performed 3 years and 8 months ago. REASON FOR EXAM: screening, asymptomatic. PROCEDURE: MG BREAST TOMOSYNTHESIS BL SCR: 2020 - 2D/3D Procedure 3D Bilateral CC and MLO view(s) were taken. 2D Bilateral CC and MLO view(s) were taken. Prior study comparison: March 04, 2017, bilateral MG breast tomosynthesis bl scr performed at [facility]. November 21, 2015, bilateral MG breast tomosynthesis bl scr performed at [facility]. June 21, 2014, bilateral MG mammogram digital screening performed at [facility]. TISSUE DENSITY: BIRADS B - There are scattered fibroglandular densities. . PATIENT CANCER HISTORY: No Personal History of Cancer FAMILY CANCER HISTORY: Mother Stomach Cancer age 79 FINDINGS: No suspicious masses, architectural distortions or suspiciously clustered microcalcifications are identified. Asymmetric glandular tissue involving the upper outer right breast as before. There is no evidence of skin thickening or nipple retraction. There are no significant changes when compared with prior studies. Markings on images: BB's = Nipples; skin lesions Open [place] = Palpable Line = Scar 2D digital mammography and tomosynthesis imaging were performed and reviewed with CAD. Mammography Report ASSESSMENT: Category 2 Benign RECOMMENDATION: Routine screening mammogram of both breasts in 1 year. . Report Dictated on Cancer Risk Assessment: This risk assessment is based on patient provided information collected in a risk survey taken at the time of this examination. Lifetime breast cancer risk: Low Risk - If greater than or equal to 20%, consider annual mammogram and annual screening Breast MRI or follow up in high risk clinic. A score of "Low Risk" indicates a score of less than 20%. Is the patient at elevated risk based on the HBOC criteria? No (Hereditary Breast and Ovarian Cancer) - If yes, consider genetic counseling and testing with high risk follow up. Is the patient at elevated risk based on the Fox Syndrome criteria? No - If yes, consider genetic counseling and testing with high risk follow up. Final Signed Date and Time: 11/13/2020 8:39 am Signed by: MD BARRY, [facility] 08-10-2018 [facility] Office Visit (OTOLST ) PADMINI KIDD ([id number]) 1955 F Date Time Provider Department 08/10/18 4:15 PM BART HORN During your visit today, we recorded the following information about you: Bart Horn MD 08/10/2018 4:26 PM Signed History: Padmini Lupis Agnes, a 63 year old female, presents for f/up persistent sinusitis. Rx'd levaquin, pred, flonase, claritin. Much improved. Occ PND in am. H/o intermittent fac and ear pres, occ B sharp ear pain, nasal congestion, runny-nose, PND, cough since 01/11. Quit smoking 06/12. ? allergies. No history of sinus/nasal surgery. Tubes age 41. Procedure: Sinonasal endoscopy. Indication: Sinus symptoms. Description of procedure: A flexible laryngoscope was used to visualize the nasal cavity. The mucosa was as above. Left: Polyps were not noted in the middle meatus. No drainage from middle meatus. Polyps were not noted in the spenoethmoid recess. Purulence was not noted in the sphenoethmoid recess. Right: Polyps were not noted in the middle meatus. No drainage from middle meatus. Polyps were not noted in the spenoethmoid recess. Purulence was not noted in the sphenoethmoid recess. The nasopharynx was free of ulcerative or mass lesions. Impression: Persistent sinusitis - resolved with levaquin, pred, flonase. Cont flonase, claritin. Referring Provider: SELF [200] Allergies As of Date: 08/10/2018 Noted Allergy Reaction PENICILLINS 07/07/2018 4 - Hives 7 - Swelling Date Reviewed: 08/10/2018 Reviewed by: Natividad Gonsalez RN - Fully Assessed Reason for Visit: Follow Up [171] Primary Visit Diagnosis:Other chronic sinusitis [J32.8] Prescriptions as of 08/10/2018 Sig: PREDNISONE 10 MG TABLET Take 4 tabs per d for 4 days,* Patient not taking: Reported on 08/10/2018 Problem List As Of Date 08/10/2018 Noted Resolved Other chronic sinusitis [J32.8] INVALID FOR* Encounter Status:Closed by BART HORN MD on 08/10/18 [facility] PROGRESSon 08-10-2018 Protein mass conc HNO ID: [id number] Author: Bart Horn Service: ? Author Type: Physician Type: Progress Notes Filed: 08/10/2018 4:26 PM Note Text: History: Padmini iKdd, a 63 year old female, presents for f/up persistent sinusitis. Rx'd levaquin, pred, flonase, claritin. Much improved. Occ PND in am. H/o intermittent fac and ear pres, occ B sharp ear pain, nasal congestion, runny-nose, PND, cough since 01/11. Quit smoking 06/12. ? allergies. No history of sinus/nasal surgery. Tubes age 41. Procedure: Sinonasal endoscopy. Indication: Sinus symptoms. Description of procedure: A flexible laryngoscope was used to visualize the nasal cavity. The mucosa was as above. Left: Polyps were not noted in the middle meatus. No drainage from middle meatus. Polyps were not noted in the spenoethmoid recess. Purulence was not noted in the sphenoethmoid recess. Right: Polyps were not noted in the middle meatus. No drainage from middle meatus. Polyps were not noted in the spenoethmoid recess. Purulence was not noted in the sphenoethmoid recess. The nasopharynx was free of ulcerative or mass lesions. Impression: Persistent sinusitis - resolved with levaquin, pred, flonase. Cont flonase, claritin. Normal [facility] CNOVon 07-07-2018 [facility] Office Visit (OTOLST ) PADMINI KIDD ([id number]) 1955 F Date Time Provider Department 07/07/18 7:00 AM BART HORN OTZULEIMA During your visit today, we recorded the following information about you: Bart Horn MD 07/07/2018 7:34 AM Signed History: Padmini Baugh Agnes, a 63 year old female, presents for evaluation of intermittent fac and ear pres, occ B sharp ear pain, nasal congestion, runny-nose, PND, cough since 01/11. Multiple abx. Improved recently on biaxin, flonase but not back to baseline. Quit smoking 1 mos ago. Dneies sorethroat. ? allergies. No history of sinus/nasal surgery. Tubes age 41. ROS: Consitutional: Fever: No Chills: No Weight loss: No Gastroentestinal: Dysphagia: No Odynophagia: No Respiratory: Cough: + Hemoptysis: No Shortness of breath: No Endocrine: Thyroid disease: Hypo Allergies: ? Skin disease: No Eyes: Double vision: No ENT: Voice change: raspy Hearing loss: No Tinnitus: No Dizziness: No Neurologic disease: No Psychiatric disease: No Otherwise as noted in History PMH: Hypotension PSH: Tubes, hernia, tonsils Social History Socioeconomic History Marital status: Single Spouse name: Not on file Number of children: Not on file Years of education: Not on file Highest education level: Not on file Social Needs Financial resource strain: Not on file Food insecurity - worry: Not on file Food insecurity - inability: Not on file Transportation needs - medical: Not on file Transportation needs - non-medical: Not on file Occupational History Not on file Tobacco Use Smoking status: Not on file Substance and Sexual Activity Alcohol use: Not on file Drug use: Not on file Sexual activity: Not on file Other Topics Concerns: Not on file Social History Narrative Not on file Quit smoking 1 mos ago. No alcohol. PE: Alert; oriented; well-developed; no apparent distress. Normal voice; normal communication. Eyes: EOMI, pupils symmetric and reactive bilaterally. Nose: mild congestion, clear rhinorrhea, no purulence, no crusting, septum midline, no turbinate hypertropy. Oral cavity, oropharynx: No ulcerative or mass lesions, tongue midline, palate elevates symmetrically, tongue base and floor of mouth soft. Neck: nontender, no lymphadenopathy or masses. Thyroid: no masses. Face: symmetric, sinuses nontender, skin without lesions. Salivary glands: normal size, nontender, no masses. Ears: EACs free of lesions. TMs clear and mobile. 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 Procedure: Sinonasal endoscopy. Indication: Sinus symptoms. Description of procedure: A flexible laryngoscope was used to visualize the nasal cavity. The mucosa was as above. Left: Polyps were not noted in the middle meatus. Clear mucoid drainage from middle meatus. Polyps were not noted in the spenoethmoid recess. Purulence was not noted in the sphenoethmoid recess. Right: Polyps were not noted in the middle meatus. Mucoid drainage from middle meatus. Polyps were not noted in the spenoethmoid recess. Purulence was not noted in the sphenoethmoid recess. The nasopharynx was free of ulcerative or mass lesions. Impression: Intermittent fac and ear pres, occ B sharp ear pain, nasal congestion, runny-nose, PND, cough since 01/11. Mucoid drainage B MM. Redc levaquin, pred, cont flonase. f/up 1 mos. Referring Provider: SELF [200] Allergies As of Date: 07/07/2018 Noted Allergy Reaction PENICILLINS 07/07/2018 4 - Hives 7 - Swelling Date Reviewed: 07/07/2018 Reviewed by: Natividad Gonsalez RN - Fully Assessed Reason for Visit: Consult [502] Primary Visit Diagnosis:Other chronic sinusitis [J32.8] Order(s):levoFLOXacin (LEVAQUIN) 500 mg tabletTake 1 tablet by mouth once daily for 21 days.Disp: 21 tabletRfl: 0 predniSONE (DELTASONE) 10 mg tabletTake 4 tabs per d for 4 days, then 3 tabs/d for 3 days, the 2 tabs/d for 3 days, then 1 tab per d for 2 days.Disp: 33 tabletRfl: 0 Prescriptions as of 07/07/2018 Sig: LEVOFLOXACIN 500 MG TABLET Take 1 tablet by mouth once d* PREDNISONE 10 MG TABLET Take 4 tabs per d for 4 days,* Problem List As Of Date 07/07/2018 Noted Resolved Other chronic sinusitis [J32.8] INVALID FOR* Prescriptions ordered this encounter Disp Refills Start End LEVOFLOXACIN 500 MG TABLET 21 t* 0 07/07/2018 07/28/2018 Route: ORAL Sig: Take 1 tablet by mouth once daily for 21 days. PREDNISONE 10 MG TABLET 33 t* 0 07/07/2018 Sig: Take 4 tabs per d for 4 days, then 3 tabs/d for 3 days, the 2 tabs/d for 3 days, then 1 tab per d for 2 days. Encounter Status:Closed by BART HORN MD on 07/07/18 [facility] PROGRESSon 07-07-2018 Protein mass conc HNO ID: [id number] Author: Bart Horn Service: ? Author Type: Physician Type: Progress Notes Filed: 07/07/2018 7:34 AM Note Text: History: Padmini Kidd, a 63 year old female, presents for evaluation of intermittent fac and ear pres, occ B sharp ear pain, nasal congestion, runny-nose, PND, cough since 01/11. Multiple abx. Improved recently on biaxin, flonase but not back to baseline. Quit smoking 1 mos ago. Dneies sorethroat. ? allergies. No history of sinus/nasal surgery. Tubes age 41. ROS: Consitutional: Fever: No Chills: No Weight loss: No Gastroentestinal: Dysphagia: No Odynophagia: No Respiratory: Cough: + Hemoptysis: No Shortness of breath: No Endocrine: Thyroid disease: Hypo Allergies: ? Skin disease: No Eyes: Double vision: No ENT: Voice change: raspy Hearing loss: No Tinnitus: No Dizziness: No Neurologic disease: No Psychiatric disease: No Otherwise as noted in History PMH: Hypotension PSH: Tubes, hernia, tonsils Social History Socioeconomic History Marital status: Single Spouse name: Not on file Number of children: Not on file Years of education: Not on file Highest education level: Not on file Social Needs Financial resource strain: Not on file Food insecurity - worry: Not on file Food insecurity - inability: Not on file Transportation needs - medical: Not on file Transportation needs - non-medical: Not on file Occupational History Not on file Tobacco Use Smoking status: Not on file Substance and Sexual Activity Alcohol use: Not on file Drug use: Not on file Sexual activity: Not on file Other Topics Concerns: Not on file Social History Narrative Not on file Quit smoking 1 mos ago. No alcohol. PE: Alert; oriented; well-developed; no apparent distress. Normal voice; normal communication. Eyes: EOMI, pupils symmetric and reactive bilaterally. Nose: mild congestion, clear rhinorrhea, no purulence, no crusting, septum midline, no turbinate hypertropy. Oral cavity, oropharynx: No ulcerative or mass lesions, tongue midline, palate elevates symmetrically, tongue base and floor of mouth soft. Neck: nontender, no lymphadenopathy or masses. Thyroid: no masses. Face: symmetric, sinuses nontender, skin without lesions. Salivary glands: normal size, nontender, no masses. Ears: EACs free of lesions. TMs clear and mobile. 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 Procedure: Sinonasal endoscopy. Indication: Sinus symptoms. Description of procedure: A flexible laryngoscope was used to visualize the nasal cavity. The mucosa was as above. Left: Polyps were not noted in the middle meatus. Clear mucoid drainage from middle meatus. Polyps were not noted in the spenoethmoid recess. Purulence was not noted in the sphenoethmoid recess. Right: Polyps were not noted in the middle meatus. Mucoid drainage from middle meatus. Polyps were not noted in the spenoethmoid recess. Purulence was not noted in the sphenoethmoid recess. The nasopharynx was free of ulcerative or mass lesions. Impression: Intermittent fac and ear pres, occ B sharp ear pain, nasal congestion, runny-nose, PND, cough since 01/11. Mucoid drainage B MM. Redc levaquin, pred, cont flonase. f/up 1 mos. Normal [facility] Vital Signs Date Time Vital Sign Value Performing Clinician Faci lity 05-08-2023 17:41-0400 Body mass index (BMI) [Ratio] 27.6 kg/m2 [facility] 05-08-2023 17:41-0400 Body temperature 97.7 [degF] [facility] 05-08-2023 17:41-0400 Body weight 87.99 kg [facility] 05-08-2023 17:41-0400 Diastolic blood pressure 80 mm[Hg] [facility] 05-08-2023 17:41-0400 Heart rate 64 /min [facility] 05-08-2023 17:41-0400 Respiratory rate 18 /min [facility] 05-08-2023 17:41-0400 SaO2% (BldA) [Mass fraction] 96 % [facility] 05-08-2023 17:41-0400 Systolic blood pressure 140 mm[Hg] [facility] 03-27-2023 20:34-0500 Body mass index (BMI) [Ratio] 28.2 kg/m2 [facility] 03-27-2023 20:34-0500 Body temperature 97.2 [degF] [facility] 03-27-2023 20:34-0500 Body weight 89.81 kg [facility] 03-27-2023 20:34-0500 Diastolic blood pressure 80 mm[Hg] [facility] 03-27-2023 20:34-0500 Heart rate 80 /min [facility] 03-27-2023 20:34-0500 Respiratory rate 18 /min [facility] 03-27-2023 20:34-0500 SaO2% (BldA) [Mass fraction] 96 % [facility] 03-27-2023 20:34-0500 Systolic blood pressure 100 mm[Hg] [facility] Encounters Encounter Date Encounter Type Care Provider Facility Start: 12-11-2023 End: 12-11-2023 ambulatory Brenda Patiño UNDERWATER ROBOTICIST Facility:[facility] Start: 05-26-2023 End: 05-26-2023 ambulatory [facility] Work Phone: Start: 05-26-2023 End: 05-26-2023 Patient encounter procedure [facility] Specimen Work Phone: Start: 05-26-2023 End: 05-26-2023 ambulatory Brenda Patiño UNDERWATER ROBOTICIST Facility:[facility] Start: 01-02-2022 End: 01-02-2022 ambulatory BRENDA PATIÑO [facility] Start: 12-28-2021 End: 12-29-2021 ambulatory BRENDA PATIÑO [facility] Start: 11-13-2020 End: 11-13-2020 Subsequent hospital visit by physician Brenda Patiño Work Phone: [facility] Comment on above: Arrived Procedures Date Procedure Procedure Detail Performing Clinician Start: 11-13-2020 Screening digital br east tomosynthesis bi Brenda Patiño Work Phone: Plan of Treatment Date Care Activity Detail Author Start: 12-28-2020 Lipid panel Lipid screen [facility] Work Phone: Start: 10-25-2020 Influenza vaccination Flu vaccine (# 1) [facility] Work Phone: Start: 03-04-2019 Screening for malign ant neoplasm of breast Breast cancer screen [facility] Work Phone: Start: 05-28-2017 Screening for malign ant neoplasm of colon Colon Cancer Screen FIT/FOBT [facility] Work Phone: Start: 2006 Shingles Vaccine (1 of 2) Shingles V accine (1 of 2) [facility] Work Phone: Start: 1986 Screening for malign ant neoplasm of cervix [facility] Work Phone: Start: 1977 Screening for malign ant neoplasm of cervix Pap smear [facility] Work Phone: Start: 1975 DTaP/Tdap/Td vaccine (1 - Tdap) DTaP/Tdap/Td vaccine (1 - Tdap) [facility] Work Phone: Start: 1971 HIV screening HIV screen [facility] Work Phone: Start: 1962 Pneumococcal 0-64 ye ars Vaccine (1 of 2 - PPSV23) Pneumococcal 0-64 years Vaccine (1 of 2 - PPSV23) [facility] Work Phone: Start: 1956 Hepatitis C screening Hepatitis C sc reen [facility] Work Phone: Payers Date Payer Category Payer Medicare [id number] 2023 Self-pay [id number] 2023 Unknown [id number] 2014 Unknown [id number] Medicare [id number] Unknown ZELDA [id number] Unknown [id number] Unknown [id number] Social History Date Type Detail Facility Start: 05-16-2016 Tobacco smoking stat [facility] Current every day smoker [facility] Work Phone: History of tobacco use Cigarette Smoker [facility] Start: 05-16-2016 Cigarettes smoked current (pack per day) - Reported [facility] Work Phone: Start: 05-16-2016 Tobacco use and exposure Never used [facility] Start: 05-16-2016 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) [facility] Work Phone: Start: 1955 Sex Assigned At Not on file [facility] Work Phone: Start: 11-22-2022 Tobacco smoking stat [facility] Unknown if ever smoked [facility] Start: 1955 Sex Assigned At Female [facility] Evaluation note Note Date & Type Note Facility Evaluation note Diagnosis Onset Date Bilateral otitis media acute Diarrhea acute Maxillary sinusitis acute Bilateral otitis media acute Maxillary sinusitis acute [facility] Work Phone: Summary Purpose Family History No Family History Records Found Relationship Condition Age at Onset Recorded Date/T jamilah Not Specified Malignant neoplasm of stomach Unknown Diabetes mellitus Unknown Cardiac disease Unknown Kidney disorder Unknown Hemorrhagic disorder Unknown Hypertension Unknown Disorder of thyroid Unknown father Myocardial infarction Unknown Advance Directives No Advanced Directives Records FoundDocuments on File Type Date Recorded 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 Expl anation ACP-Advance Directive ACP-Power of Substance Abuse Technician Chief Complaint and Reason for Visit Chief Complaint Ear/Sinus Sinus infection/Ears Reason for Visit Bilateral otitis med ia Diarrhea Maxillary sinusitis Bilateral otitis media Maxillary sinusitis Additional Source Comments INFORMATION SOURCE (unrecogn ized section and content) DATE CREATED AUTHOR 08/13/2018 [facility] DATE CREATED AUTHOR AUTHOR'S ORGANIZ ATION 11/16/2020 [facility] [employer] DATE CREATED AUTHOR AUTHOR'S ORGANIZ ATION 01/11/2022 [facility] [employer] [facility] DATE CREATED AUTHOR AUTHOR'S ORGANIZ ATION 01/08/2024 [facility] Care Teams (unrecognized sec tion and content) Team Status: Active Member Role Status Dates Brenda Patiño NP, UNDERWATER ROBOTICIST-C Primary Care Provider Active Team Status: Inactive Member Role Status Dates Brenda Patiño NP, UNDERWATER ROBOTICIST-C Attending Provider Active Team Status: Inactive Member Role Status Dates Brenda Patiño NP, DANELLE-C Primary Care Provider, Attend ing Provider Active Goals (unrecognized section and content) Goals may be documented in a n alternate section FOR RECORDS PERTAINING TO PATIENTS WHO ARE OR HAVE BEEN ENROLLED IN A CHEMICAL DEPENDENCY/SUBSTANCEABUSE PROGRAM, SOME INFORMATION MAY BE OMITTED. This clinical summary was aggregated from multiple sources. Caution should be exercised in using it in the provision of clinical care. This summary normalizes information from multiple sources, and as a consequence, information in this document may materially change the coding, format and clinical context of patient data. In addition, data may be omitted in some cases. CLINICAL DECISIONS SHOULD BE BASED ON THE PRIMARY CLINICAL RECORDS. [facility] [employer] [facility]. provides no warranty or guarantee of the accuracy or completeness of information in this document.
[2024-12-09 21:52] LABS: Hematocrit 39.3 % (37-47); Hemoglobin 13.4 g/dL (12.0-15.0); Immature Granulocytes Count 0.020 X10^3/uL (0.0-0.0); Mean Corp Hgb Conc 34.1 g/dL (32-36); Mean Corpuscular Volume 90.1 fL (81-99); Mean Platelet Vol. 10.3 fl (6.2-12.0); NRBC Flagged by Analyzer 0 % (0-5); Platelet Count 306 K/mm3 (150-450); RBC Distribution Width CV 13.3 % (11.6-14.6); RBC Distribution Width SD 43.8 fl (35.1-43.9); Red Blood Count 4.36 M/mm3 (4.2-5.4); White Blood Count 7.3 K/mm3 (4.4-11.0)
[2024-12-09 22:31] LABS: AST(SGOT) 26 U/L (<=31); Alanine Aminotransfer ALT/SGPT 22 U/L (<=34); Albumin, Serum 4.2 g/dL (3.4-4.8); Alkaline Phosphatase 102 U/L (35-104); Anion Gap 12 (5-15); BUN 9 mg/dL (4-19); BUN/Creat Ratio 11.5 RATIO (10-20); Calcium,Total 9.9 mg/dL (7.6-11.0); Carbon Dioxide 24.8 mmol/L (21.0-32.0); Chloride 103 mmol/L (98-108); Cholesterol 187 mg/dL (<=200); Globulin 2.8 g/dL (2.2-4.2); Glucose 79 mg/dL (70-99); Low Density Lipoprotein Calc. 99 mg/dL; Potassium 3.7 mmol/L (3.3-5.1); Triglycerides 104 mg/dL; Very Low Density Lipoprotein 21 mg/dL (5-40); cholesterol:hdl ratio screen 2.78
== END | disposition home or self-care (01) ==
PROVIDERS: PCP Nurse Practitioner; Referring Provider Nurse Practitioner; Visit Provider Nurse Practitioner
DX: I10 Essential (primary) hypertension (principal); L40.9 Psoriasis, unspecified; F41.1 Generalized anxiety disorder; E03.9 Hypothyroidism, unspecified; K21.9 Gastro-esophageal reflux disease without esophagitis
CPT/HCPCS: 80053; 80061; 85025